=== PATIENT | male | born 1970 | race Caucasian/White ===

== ENCOUNTER → 2020-12-26 11:13 | Outpatient (REF) | payer BC, SELFPAY | LOC: ANHLAB 11:13 | PROVIDERS: PCP Family Medicine; Visit Provider Nurse Practitioner | DX: D22.5 Melanocytic nevi of trunk (principal) | CPT/HCPCS: 88305 ==

== ENCOUNTER 2022-03-03 13:00 | Outpatient (NON) | payer BC, SELFPAY | END 2022-03-03 13:01 | disposition home or self-care (01) | LOC: ANHLAB 03-04 11:39 | PROVIDERS: PCP Family Medicine; Visit Provider Nurse Practitioner | DX: C44.719 Basal cell carcinoma of skin of left lower limb, including hip (principal) | CPT/HCPCS: 88305 ==

== ENCOUNTER 2022-03-30 17:27 | Outpatient (NON) | payer BC, SELFPAY | END 2022-03-30 17:28 | disposition home or self-care (01) | PROVIDERS: PCP Family Medicine; Referring Provider Nurse Practitioner; Visit Provider Nurse Practitioner | DX: C44.91 Basal cell carcinoma of skin, unspecified (principal) | CPT/HCPCS: 88305; 88331 ==

== ENCOUNTER 2023-03-30 12:29 | Outpatient (NON) | payer BC, SELFPAY | END 2023-03-30 12:30 | disposition home or self-care (01) | LOC: ANHLAB 03-31 12:31 | PROVIDERS: PCP Family Medicine; Visit Provider Nurse Practitioner | DX: D22.72 Melanocytic nevi of left lower limb, including hip (principal) | CPT/HCPCS: 88305 ==